=== PATIENT | female | born 1965 ===

== ENCOUNTER → 2018-01-26 | Day surgery (SDC) | payer OTHER ==
[2018-01-24 13:50] VITALS: Ht 172.7 cm; Wt 125.0 kg
[~2018-01-26] VITALS: Ht 172.7 cm; Wt 125.0 kg
[~2018-01-26] MED LIST: ASPCH81X PO; ATOR10TA82 PO; B-COTAB18 PO; CALC500T72 PO; CHOL100010 PO; GABA-113 PO; HYDR25TA4 PO; IOPAMIDOL INJ 61% 15 ML VIAL ONE; LIDOCAINE HCL 1% MPF 5 ML VIAL ONE; SODIUM CHLORIDE 0.9% INJ 10 ML VIAL ONE; VITACAP37 PO
--- NOTE | 2018-01-26 12:53 | History & Physical Bridge - [place] ---
H&P Re-Evaluation Bridge Note: I have examined the patient, reviewed the History & Physical and in the interval since the performance of the History & Physical I have noted the following changes of clinical significance: No changes noted
--- NOTE | 2018-01-26 13:19 | [facility] Post Operative Brief Note ---
Immediate Operative Summary Operative Date Jan 26, 2018. Pre-Operative Diagnosis GRADE 1 L4-5 SPONDYLISTHESIS WITH LEFT LOWER EXTREMITY RADICULOPATHY Post-Operative Diagnosis GRADE 1 L4-5 SPONDYLISTHESIS WITH LEFT LOWER EXTREMITY RADICULOPATHY Procedure(s) Performed LUMBAR EPIDURAL STEROID INJECTION Surgeon DR. Rox MORENO [employer] Plate [employer]inter Surgeon(s) None Estimated Blood Loss 0 Findings Consistent with Post-Op Diagnosis Specimens NA Drains None Anesthesia Type Local Complication(s) none Disposition Disposition:
--- NOTE | 2018-01-26 13:20 | Discharge Instructions ---
Discharge Instructions Date of Service Jan 26, 2018. Visit Reason for Visit: Scaral & Sacrococcygeal Radiculopathy, Lumbar Spon Discharge Discharge Diagnosis / Problem: left leg pain Discharge Goals Goal(s): Decrease discomfort, Improve function Medications Stopped Medications Name(s): motrin and ASA stopped tuesday Activity Recommendations Activity Limitations: resume your previous activity Anesthesia . Post Anesthesia Instructions: If you have had General Anesthesia or IV Sedation: * Do not drive today. * Resume driving when surgeon permits. * Do not make important decisions or sign legal documents today. * Call surgeon for: 1. Temperature elevations greater than 101 degrees F. 2. Uncontrollable pain. 3. Excessive bleeding. 4. Persistent nausea and vomiting. 5. Medication intolerance (nausea, vomiting or rash). * For nausea and vomiting use only clear liquids such as: tea, soda, bouillon until nausea subsides, then gradually increase diet as tolerated. * If you have any concerns or questions, call your surgeon's office. If physician is unavailable and it is an emergency, call 911 or go to the nearest emergency room. . Diet Recommendations Recommended Home Diet: resume previous diet Procedures Procedures Performed: LUMBAR EPIDURAL STEROID INJECTION Pending Studies Studies pending at discharge: no Medical Emergencies . Who to Call and When: Medical Emergencies: If at any time you feel your situation is an emergency, please call 911 immediately. . Non-Emergent Contact Non-Emergency issues call your: Specialist . . "Provider Documentation" section prepared by Krystian Adorno. .
[2018-01-26 13:23] VITALS: TEMP 37
[2018-01-26 13:38] VITALS: BP 188/93; PULSE 73; O2SAT 96
--- NOTE | 2018-01-26 15:56 | OPERATIVE REPORT ---
DATE OF OPERATION: 01/26/2018 PREOPERATIVE DIAGNOSIS: Grade 1 L4-L5 spondylolisthesis with a left L5 radiculopathy. POSTOPERATIVE DIAGNOSIS: Same. PROCEDURE: Left paramedian L5-S1 interlaminar epidural steroid injection under fluoroscopic guidance. INDICATIONS: Patient is a 52-year-old white female who has responded somewhat to gabapentin with 50% improvement; however, she still has radicular pain that is function limiting to her and presents today for an epidural steroid injection to provide her with relief. PHYSICAL EXAMINATION: GENERAL: Pleasant female, seated comfortably, in no apparent distress. MUSCULOSKELETAL: She has some mild limitations with forward flexion, no problems with extension. She has normal lower extremity strength. Negative seated straight leg raises. Intact sensation distally at the L4, L5, S1 dermatomes. CONSENT: Verbal and written consent was obtained from the patient. Risks and benefits reviewed. Risks include but are not limited to epidural abscess, epidural hematoma, allergic reaction, dural puncture. Patient wishes to proceed. DESCRIPTION PROCEDURE: Patient was taken back to the special procedures room of [facility] where she was maintained in a prone position. Backside was cleansed with Betadine x3, and a dry sterile dressing was applied. Fluoroscopy was used to identify the L5-S1 interlaminar space. The overlying skin was anesthetized with 4 mL of lidocaine 1% with a 25 gauge 1-1/2 inch needle. A 22 gauge 4-1/4 inch Tuohy needle was then directed down toward the interlaminar space. It was advanced under lateral fluoroscopic guidance, and loss of resistance was noted at a depth of 10.5 cm. Isovue 300 contrast 1 mL was injected which demonstrated epidural uptake pattern. She then underwent injection after negative aspiration of 40 mg of Depo-Medrol and 4 mL of preservative free sodium chloride. DISPOSITION: 1. Patient is taken out in the discharge recovery area from where she will be discharged home once discharge criteria met. 2. Follow up in the [facility] office in 4 weeks time. I attest to the content of the Intraoperative Record and any orders documented therein. Any exception s are noted below.
== END | disposition home or self-care (01) ==
LOC: X.SURG 12:05
PROVIDERS: ATTEND Physical Medicine & Rehabilitation
DX: M43.16 Spondylolisthesis, lumbar region (principal); M54.16 Radiculopathy, lumbar region; Z79.899 Other long term (current) drug therapy